=== PATIENT | female | born 1980 | race Two or more races ===

== ENCOUNTER 2019-08-31 05:40 | Day surgery (SDC) | payer OTHER ==
[~2019-08-31 05:40] MED LIST: NOLVADEX10 MG PO
[2019-08-31] MEDS ORDERED: TYLENOL ARTHRI650 MG PO (09:11)
[2019-08-31] MEDS ORDERED: NEURONTIN300 MG PO (09:11)
[2019-08-31] MEDS ORDERED: ULTRAM50 MG PO (09:11)
[2019-08-31] MEDS ORDERED: ZOFRAN4 MG PO (09:11)
[2019-08-31] MEDS ORDERED: MIRALAX17 GM PO (09:11)
== END 2019-08-31 11:20 | disposition home or self-care (01) ==
LOC: CIR.AMB 05:40
DX: K43.6 Other and unspecified ventral hernia with obstruction, without gangrene (principal)